=== PATIENT | female | born 1985 | race African-American/Black ===

== ENCOUNTER 2018-11-07 11:56 | Emergency (ER) | payer MEDICAID ==
[~2018-11-07] VITALS: Ht 170.2 cm; Wt 106.1 kg
--- NOTE | 2018-11-07 12:05 | NUR ---
ED Nurse Note: Patient walked into ED c/o of general complaint, patient states that people have been telling her, "her eyes have been rolling back" at timeof arrival patient is alert and oriented x4, however when conversating with patient, the patient's eyes does roll back. patient denies any pain
[2018-11-07 12:10] VITALS: BP 101/61
--- NOTE | 2018-11-07 12:34 | Emergency Room Report ---
History of Present Illness General Chief Complaint: General Complaint Source: Patient Present Illness HPI 33-year-old female presents to the emergency department complaining of status post seizure 30 minutes ago. Patient states that she does not remember what happened however this was witnessed and she was brought to the emergency department for evaluation seizure was noted to last approximately 1-2 minutes. She has a history of seizures she reports her last seizure was approximately one month ago she states she takes Keppra 500 mg twice a day however she has been out of it for 2 days. Patient denies fevers, chills, nausea, vomiting, headache, recent head injury or recent illness. Patient denies pain at this time she denies bleeding in the mouth She denies midline neck or back pain. she denies dizziness, confusion, chest pain or palpitations. Patient also reports history of schizophrenia and states that she just began receiving in [place] injections 2 weeks ago. He denies illicit drug use she denies alcohol use she does report that she smokes cigarettes on a regular basis. Patient does state that she is late for her menstrual cycle by 1 week and she states that she was sexually active with having unprotected intercourse partly 2 weeks ago. She denies dysuria, frequency, urinary urgency. Patient denies previous she denies abdominal pain, cramping, constipation or diarrhea. Patient has no other complaints at this time. She denies any aggravating or relieving factors. Allergies: Coded Allergies: No Known Allergies (Unverified , 11/07/18) Patient History Past Medical History: see triage record, seizures, psych hx Past Surgical History: none Pertinent Family History: none Last Menstrual Period: per pt she is late Reviewed Nursing Documentation: PMH: Agreed; PSxH: Agreed Nursing Documentation-PM Past Medical History: No History, Except For Hx Diabetes: Yes History Of Psychiatric Problem: Yes - schizophrenia Review of Systems All Other Systems: negative except mentioned in HPI Physical Exam Vital Signs Date Time Temp Pulse Resp B/P (MAP) Pulse Ox O2 Delivery O2 Flow Rate FiO2 11/07/18 12:04 98.8 88 15 101/61 96 Room Air Sp02 EP Interpretation: reviewed, normal General Appearance: no apparent distress, alert, GCS 15, non-toxic Head: normocephalic, atraumatic Eyes: bilateral eye normal inspection, bilateral eye PERRL, bilateral eye fluoroscene uptake ENT: hearing grossly normal, normal voice, other - Oral trauma noted Neck: full range of motion Respiratory: chest non-tender, lungs clear, normal breath sounds, speaking full sentences Cardiovascular #1: regular rate, rhythm, no edema Gastrointestinal: normal bowel sounds, non tender, soft Rectal: deferred Genitourinary: normal inspection Musculoskeletal: back normal, gait/station normal, normal range of motion, non- tender Neurologic: alert, oriented x3, responsive, motor strength/tone normal, sensory intact, speech normal, grossly normal Psychiatric: judgement/insight normal Skin: normal color, no rash, warm/dry, well hydrated Lymphatic: no adenopathy Medical Decision Making PA Attestation Dr. Almanzar is my supervising Physician whom patient management has been discussed with. Diagnostic Impression: Primary Impression: Seizure disorder Additional Impression: Medication refill ER Course 33-year-old female presents to the emergency department complaining of status post seizure 30 minutes ago. Patient states that she does not remember what happened however this was witnessed and she was brought to the emergency department for evaluation seizure was noted to last approximately 1-2 minutes. She has a history of seizures she reports her last seizure was approximately one month ago she states she takes Keppra 500 mg twice a day however she has been out of it for 2 days. Patient denies fevers, chills, nausea, vomiting, headache, recent head injury or recent illness. Patient denies pain at this time she denies bleeding in the mouth She denies midline neck or back pain. she denies dizziness, confusion, chest pain or palpitations. Patient also reports history of schizophrenia and states that she just began receiving in [place] injections 2 weeks ago. He denies illicit drug use she denies alcohol use she does report that she smokes cigarettes on a regular basis. Patient does state that she is late for her menstrual cycle by 1 week and she states that she was sexually active with having unprotected intercourse partly 2 weeks ago. She denies dysuria, frequency, urinary urgency. Patient denies previous she denies abdominal pain, cramping, constipation or diarrhea. Patient has no other complaints at this time. She denies any aggravating or relieving factors. Ddx considered but are not limited to seizure, meningitis, infection, CVA/TIA, intracranial hemorrhage, intracranial process Vital signs: he is afebrile, vital signs are WNL H&PE are most consistent with status post seizure ORDERS: See lab results attached. -BMP: Unremarkable -CBC: Unremarkable -UA: Unremarkable -Hcg; negative ED INTERVENTIONS: Keppra Loading Dose 1000mg PO -I do not identify an emergent condition at this time. With current presentation , pt. is stable for close outpatient follow up and conservative treatment. D/ w pt. to return promptly to ED with worsening or new symptoms.- Pt. verbalizes' understanding and agreement with proposed treatment plan.proposed treatment plan. DISCHARGE: At this time pt. is stable for d/c to home. Will provide printed patient care instructions, and any necessary prescriptions. Care plan and follow up instructions have been discussed with the patient prior to discharge. Labs Test 11/07/18 12:19 11/07/18 13:13 Urine Color Yellow Urine Appearance Clear Urine pH 5 (4.5-8.0) Urine Specific [place] 1.025 (1.005-1.035) Urine Protein 1+ (NEGATIVE) Urine Glucose (UA) Negative (NEGATIVE) Urine Ketones 1+ (NEGATIVE) Urine Blood Negative (NEGATIVE) Urine Nitrite Negative (NEGATIVE) Urine Bilirubin Negative (NEGATIVE) Urine Urobilinogen 1 MG/DL (0.0-1.0) Urine Leukocyte Esterase 1+ (NEGATIVE) Urine RBC 0-2 /HPF (0 - 2) Urine WBC 0-2 /HPF (0 - 2) Urine Squamous Epithelial Cells Few /LPF (NONE/OCC) Urine Calcium Oxalate Crystals Few /LPF (NONE) Urine Bacteria Few /HPF (NONE) Urine Mucus Moderate /LPF (NONE/OCC) Urine HCG, Qualitative Negative (NEGATIVE) White Blood Count 13.0 K/UL (4.8-10.8) Red Blood Count 5.04 M/UL (4.20-5.40) Hemoglobin 12.2 G/DL (12.0-16.0) Hematocrit 39.2 % (37.0-47.0) Mean Corpuscular Volume 78 FL (80-99) Mean Corpuscular Hemoglobin 24.2 PG (27.0-31.0) Mean Corpuscular Hemoglobin Concent 31.1 G/DL (32.0-36.0) Red Cell Distribution Width 19.0 % (11.6-14.8) Platelet Count 291 K/UL (150-450) Mean Platelet Volume 8.0 FL (6.5-10.1) Neutrophils (%) (Auto) 60.3 % (45.0-75.0) Lymphocytes (%) (Auto) 30.7 % (20.0-45.0) Monocytes (%) (Auto) 7.1 % (1.0-10.0) Eosinophils (%) (Auto) 1.1 % (0.0-3.0) Basophils (%) (Auto) 0.9 % (0.0-2.0) Sodium Level 143 MMOL/L (136-145) Potassium Level 4.0 MMOL/L (3.5-5.1) Chloride Level 105 MMOL/L (98-107) Carbon Dioxide Level 30 MMOL/L (21-32) Anion Gap 9 mmol/L (5-15) Blood Urea Nitrogen 10 mg/dL (7-18) Creatinine 0.6 MG/DL (0.55-1.30) Estimat Glomerular Filtration Rate > 60 mL/min (>60) Glucose Level 98 MG/DL (74-106) Calcium Level 9.4 MG/DL (8.5-10.1) Last Vital Signs Date Time Temp Pulse Resp B/P (MAP) Pulse Ox O2 Delivery O2 Flow Rate FiO2 11/07/18 12:10 88 15 Room Air 11/07/18 12:10 98.8 101/61 96 Disposition: HOME, SELF-CARE Condition: Stable Scripts Levetiracetam (KEPPRA) 500 Mg Tablet 500 MG ORAL EVERY 12 HOURS for 30 Days, #60 TAB 0 Refills Prov: Elle Little 11/07/18 Patient Instructions: Seizure, Adult, [id number] Additional Instructions: Take medications as directed. Follow up with a Primary Care Provider in 3-5 days For a referral to have NEUROLOGIST Evaluation, even if your symptoms have resolved. --Please review list of primary care clinics, if you do not already have a primary care provider Return sooner to ED if new symptoms occur, or current symptoms become worse. - Please note that this Emergency Department Report was dictated using [employer] operator technology software, occasionally this can lead to erroneous entry secondary to interpretation by the dictation equipment. Elle Little Nov 07, 2018 12:34
[2018-11-07] MEDS ORDERED: KEPPRA500 M4 ORAL ×2 (12:50→13:58)
[2018-11-07 12:57] LABS: APPEARANCE,URINE CLEAR; BILIRUBIN, URINE NEGATIVE (NEGATIVE); GLUCOSE, URINE (UA) NEGATIVE (NEGATIVE); KETONES,URINE 1+ (NEGATIVE); LEUKOCYTE ESTERASE ,URINE 1+ (NEGATIVE); NITRITE,URINE NEGATIVE (NEGATIVE); PH,URINE 5 (4.5-8.0); PROTEIN,URINE 1+ (NEGATIVE); UROBILINOGEN,URINE 1 MG/DL (0.0-1.0)
[2018-11-07 13:06] LABS: COLOR,URINE YELLOW
[2018-11-07 13:30] LABS: BASOPHILS % (AUTO) 0.9 % (0.0-2.0); EOSINOPHILS % (AUTO) 1.1 % (0.0-3.0); HEMATOCRIT 39.2 % (37.0-47.0); HEMOGLOBIN 12.2 G/DL (12.0-16.0); LYMPHOCYTES % (AUTO) 30.7 % (20.0-45.0); MEAN CORPUSCULAR VOLUME 78 FL (80-99); MONOCYTES % (AUTO) 7.1 % (1.0-10.0); NEUTROPHILS % (AUTO) 60.3 % (45.0-75.0); PLATELET COUNT 291 K/UL (150-450); RED BLOOD COUNT 5.04 M/UL (4.20-5.40)
[2018-11-07 13:58] LABS: ANION GAP 9 mmol/L (5-15); BLOOD UREA NITROGEN 10 mg/dL (7-18); CALCIUM 9.4 MG/DL (8.5-10.1); CARBON DIOXIDE 30 MMOL/L (21-32); CHLORIDE 105 MMOL/L (98-107); CREATININE 0.6 MG/DL (0.55-1.30); SODIUM 143 MMOL/L (136-145)
[2018-11-07 14:00] VITALS: BP 110/68
--- NOTE | 2018-11-07 14:00 | NUR ---
ED Nurse Note: Pt cleared by health care provider for discharge. ACI given and explained to pt and verbalized understanding. All medical devices such as ID band removed. Pt left with all personal belongings. Pt is AAO x4 and ambulates with steady gait.
== END 2018-11-07 14:00 | disposition home or self-care (01) ==
LOC: EMR 12:30
DX: G40.909 Epilepsy, unspecified, not intractable, without status epilepticus (principal); Z76.0 Encounter for issue of repeat prescription; E11.9 Type 2 diabetes mellitus without complications; F20.9 Schizophrenia, unspecified
CPT/HCPCS: 36415; 80048; 80299; 81003; 81025; 85025; 99283